=== PATIENT | male | born 1995 ===

== ENCOUNTER 2018-02-06 04:31 | Inpatient (IN) ==
--- NOTE | 2018-02-06 06:44 | ED ---
HPI General Chief complaint: Psychiatric Symptoms Stated complaint: psych screen/vcso Time Seen by Provider: 02/06/18 06:39 Source: patient and police Mode of arrival: ambulatory Limitations: no limitations History of Present Illness HPI narrative: 22-year-old male with no significant medical history presents emergency department for evaluation under Lisandro. Patient has been seen and evaluated at [facility]. He was medically cleared and transferred here. Patient has been increasingly paranoid. He is having suicidal thoughts. He feels that his family is conspiring against him. He denies any current illicit drug use. He denies any acute medical needs. Related Data Home Medications Medication Instructions Recorded Confirmed No Known Home Medications 02/06/18 02/06/18 Allergies Allergy/AdvReac Type Severity Reaction Status Date / Time No Known Allergies Allergy Verified 02/06/18 05:36 Review of Systems Except as stated in HPI: all other systems reviewed are negative PMFSH Medical History Medical History Penis symptom or sign (Acute) Social History Social History Substance History: No History of Abuse Second Hand Smoke Exposure: No Smoking Status: Never smoker How Often Do You Have a Drink Containing Alcohol: Never Recent Travel in [facility] within the Last 8 Weeks: No Recent Out of Country Travel within the Last 8 Weeks: No Immunization History Tetanus Immunization: <5 Years Hx Influenza Vaccine This Season: No Exam Narrative Exam Narrative: GENERAL: Well-nourished, well-developed male patient, in no acute distress SKIN: Focused skin assessment warm/dry. HEAD: Normocephalic. EYES: No scleral icterus. No injection or drainage. NECK: Supple, trachea midline. No JVD or lymphadenopathy. CARDIOVASCULAR: Regular rate and rhythm without murmurs, gallops, or rubs. RESPIRATORY: Breath sounds equal bilaterally. No accessory muscle use. GASTROINTESTINAL: Abdomen soft, non-tender, nondistended. MUSCULOSKELETAL: No cyanosis, or edema. BACK: Nontender without obvious deformity. No CVA tenderness. Course Initial Documented Vital Signs Temperature 98.5 F 02/06/18 04:48 Pulse Rate 59 L 02/06/18 04:48 Respiratory Rate 15 02/06/18 04:48 Blood Pressure 110/69 02/06/18 04:48 Pulse Oximetry 100 02/06/18 04:48 Last Documented Vital Signs Temperature 98.5 F 02/06/18 04:48 Pulse Rate 59 L 07/04/18 04:48 Respiratory Rate 15 02/06/18 04:48 Blood Pressure 110/69 02/06/18 04:48 Pulse Oximetry 100 02/06/18 04:48 Medical Decision Making VALENTIN Attestation VALENTIN supervised visit: No MDM Narrative Medical decision making narrative: 22-year-old male presents emergency department as a [facility] act transfer from [facility]. Patient appears well and without distress. He is verbalizing increased paranoid thoughts as well as suicidal ideations. Patient has been medically cleared and will remain medically cleared for psychiatric screening. Mental health screening discussed with the patient. Psychiatric screen ordered. Differential Diagnosis Differential Diagnosis: Mood disorder versus personality disorder versus adjustment reaction disorder Discharge Plan Discharge Disposition Patient Disposition: 30 Still Patient Discharge Condition Condition: Stable Discharge Details Discharge Problem: Suicidal ideation Physicians Team ED Provider: DAIJA DOTSON ED Midlevel Provider: Theresa Gomez Primary Care Provider: Primary Care Catarina Moss Rxs /Orders / Referrals /Forms Prescriptions: No Action No Known Home Medications RF: 0 Status ED Status: With VALENTIN
[2018-02-06] MEDS ORDERED: Aluminum/Magnesium/Simethacone Susp 30 ML UDC PO PRN (08:25)
[2018-02-06] MEDS ORDERED: Bisacodyl 10 MG Supp RECTAL PRN (08:25)
--- NOTE | 2018-02-06 11:24 | P.HPPSY ---
Provisional Diagnosis Admission Date: February 06, 2018 08:27 Puposky I.: Unspecified psychosis, r/o schizophrenia, r/o major depressive disorder, severe , with psychotic features, cannabis use disorder Puposky II.: Deferred Puposky III.: No significant medical history Puposky IV.: Recent incarceration Puposky V.: 35 Competence Certification of Person's Competence To Provide Express and Informed Consent I have personally examined Laci Lopez, a person being served at [facility] on, February 06, 2018 1059. Express and informed consent means consent voluntarily given in writing, by a competent person, after sufficient explanation and disclosure of the subject matter involved to enable the person to make a knowing and willful decision without any element of force, fraud, deceit, duress, or other form of constraint or coercion. This person is 18 years of age or older, is not now known to be incompetent to consent to treatment with a guardian advocate, and does not have a health care surrogate or proxy currently making medical treatment decisions. I have found this person to be one of the following: [] Competent to provide express and informed consent, as defined above, for voluntary admission to this facility and is competent to provide express and informed consent for treatment. He/she has the consistent capacity to make well reasoned, willful, and knowing decisions concerning his or her medical or mental health treatment. The person fully and consistently understands the purpose of the admission for examination/placement and is fully capable of personally exercising all rights [place] Incompetent to provide express and informed consent to voluntary admission, and this is incompetent to provide express and informed consent to treatment. The person must be transferred to involuntary status and a petition for a guardian advocate filed with the Circuit Court. [x] Refusing to provide express and informed consent to voluntary admission but is competent to provide express and informed consent for treatment. The person must be discharged or transferred to involuntary status. Form shall be completed within 24 hours of a person's arrival at the receiving facility and filed in the clinical record of each person: 1. Admitted on a voluntary basis 2. Permitted to provide express and informed consent to his/her own treatment 3. Allowed to transfer from involuntary to voluntary status 4. Prior to permitting a person to consent to his or her own treatment after having been previously found incompetent to consent to treatment. History of Present Illness Capacity: Has capacity History of Present Illness: The patient is a 22-year-old descendent man, domiciled with his parents , employed, with no previous psychiatric history, no prepsychotic hospitalizations, no previous suicide attempts, no significant medical history, he does report the use of cannabis, who presents emergency department for evaluation under Lisandro. Patient has been seen and evaluated at [facility]. He was medically cleared and transferred here. As per Lisandro at patient has been increasingly paranoid. He is having suicidal thoughts. He feels that his family is conspiring against him. He denies any current illicit drug use. He denies any acute medical needs. EMR was reviewed. Case discussed with ER staff. I got collateral information from patient's mother and father, . Daniel Lopez, father, explains that the patient in the last month has been very depressed, very early leaving the house, no enjoying life, he is not enjoying work and friends in the way he used to. Patient has lost weight, in the last week he has not left his room, "he is simply not himself". The mother clarifies that the patient was arrested about a month ago because he was driving without a license, and after the patient has been feeling increasingly guilty. She noticed that the patient every day has to speak about that event. He repeatedly says that he feels very guilty and he knows that "everybody, may neighbors, my family, now know that I have not a good ". The mother clarifies also that she became quite concerned when he has started to say that people are out of the house looking inside the house because they know that he has done something really wrong. Yesterday, the patient was crying profusely stating that everything was his fault for the first time he disclosed to the mother that he has been hearing voices. Finally , the mother reports that she has a brother with schizophrenia with a similar initial presentation of the patient. On the psychiatric evaluation today the patient presents calm, cooperative, but with a prominent flat affect, blocking thought and delay speech. He says that he has his father and mother brought into the house "because I have been hearing voices everyday more frequently, multiple voices, I do not really understand what they want to tell me, but they bother me". He reports that he hears the voices every day, the voices are coming from outside his head, multiple voices, the last time he heard voices was just today. The patient also reports that he has been having difficulty differentiating the reality from the dreams, and really thinks that many people around him can read his thoughts. He reports depressed mood, reports anhedonia , reports the loss of about 10 pounds, poor appetite, poor sleep at night, and he reports that he has been thinking about committing suicide, but he does have a plan. During the evaluation the patient is oriented 3, he still process is linear, logical, coherent. He reports occasional use of marijuana, denies the use of other illegal drugs, denies the use of alcohol. - Inpatient Certification I certify that the inpatient services were ordered in accordance with Medicare regulations governing the order. This includes certification that hospital inpatient services are reasonable and necessary and in the case of services not specified as inpatient-only under 42 CFR 419.22(n), that they are appropriately provided as inpatient services in accordance to with the 2-midnight benchmark under 43 CFR 412.3(e) I certify that inpatient psychiatric hospital services are medically necessary. Evaluation and treatment and/or diagnostic testing are expected to improve the patient's condition. The patient needs on a daily basis, active treatment furnished directly by or requiring the supervision of inpatient psychiatric facility personnel. Estimated Total Length of Stay (Days): 15 Plans for Post Hospital Care: Home Review of Systems Constitutional: Denies anorexia, Denies body ache(s), Denies chills, Denies daytime sleepiness, Denies excessive sweating, Denies fatigue, Denies fever(s), Denies headache(s), Denies increased appetite, Denies lack of energy, Denies malaise, Denies night sweats, Denies weakness, Denies weight gain, Denies weight loss, Denies other Cardiovascular: Denies chest pain, Denies chest pain at rest, Denies chest pain with activity, Denies excessive sweating, Denies fainting, Denies fast heart rate, Denies foot swelling, Denies generalized swelling, Denies irregular heart rhythm, Denies leg pain with activity, Denies leg sores, Denies leg swelling, Denies lightheadedness, Denies radiating jaw, neck or arm pain, Denies rapid, pounding, or irregular heartbeat, Denies shortness of breath, Denies shortness of breath with activity, Denies shortness of breath when lying down, Denies shortness of breath causing sudden awakening, Denies slow heart rate, Denies other Respiratory: Denies change in phlegm color, Denies chest congestion, Denies cough, Denies coughing up blood, Denies excessive phlegm production, Denies pain on inspiration, Denies pain with cough, Denies shortness of breath, Denies shortness of breath with activity, Denies snoring, Denies stridor, Denies wheezing, Denies other Gastrointestinal: Denies abdominal pain, Denies belching, Denies black, tarry stools, Denies bloating, Denies bright, red blood in stools, Denies change in bowel habits, Denies constant urge to pass stool, Denies change in stools, Denies coffee ground vomit, Denies constipation, Denies cramping, Denies difficulty swallowing, Denies excessive passing of gas, Denies feeling full early, Denies heartburn, Denies incontinent of stools, Denies loose stools, Denies nausea, Denies pain with swallowing, Denies vomiting, Denies vomiting blood, Denies other Genitourinary: Denies blood in semen, Denies blood in urine, Denies decreased urination, Denies difficulty urinating, Denies difficulty with ejaculations, Denies erectile dysfunction, Denies genital lesions, Denies genital pain, Denies painful urination, Denies side pain, Denies frequent nighttime urination , Denies painful ejaculations, Denies penile discharge, Denies scrotal swelling , Denies testicle lump, Denies testicle pain, Denies urinary frequency, Denies urinary hesitancy, Denies urinary incontinence, Denies urinary urgency, Denies other Musculoskeletal: Denies abnormal walking, Denies back pain, Denies body aches, Denies decreased muscle mass, Denies deformity, Denies joint pain, Denies joint swelling, Denies limited joint movement, Denies loss of height, Denies muscle cramps, Denies muscle weakness, Denies neck pain, Denies numbness, Denies radiating pain into limb, Denies stiffness, Denies tingling, Denies other Neurologic: Denies abnormal hearing, Denies abnormal movements, Denies abnormal speech, Denies abnormal walking, Denies behavioral changes, Denies burning sensations, Denies confusion, Denies dizziness, Denies fainting, Denies frequent falls, Denies headache(s), Denies lack of coordination, Denies localized weakness, Denies loss of vision, Denies memory loss, Denies numbness, Denies other visual disturbances, Denies radiating pain, Denies restless legs, Denies convulsions, Denies seizure-like activity, Denies sensory deficit, Denies tingling, Denies tingling/numbness/burning sensations, Denies tremor(s), Denies unsteadiness, Denies weakness, Denies other Psychiatric: Reports depression, Reports hopelessness, Reports paranoia, Reports sensing things others do not sense, Reports thoughts of hurting/killing yourself PMFSH - History History Provided By: Patient - Medical History Medical History: Medical History (Last Updated 02/06/18 @ 04:57 by William Batres) Penis symptom or sign - Family History Family History: Family History (Last Updated 02/06/18 @ 11:12 by Jj Barakat MD) Other Psychosis Schizophrenia - Tobacco History Second Hand Smoke Exposure: No Smoking Status: Never smoker - Alcohol History How Often Do You Have a Drink Containing Alcohol: Never - Substance Use History Substance History: Active Abuse - Substance Use Type Marijuana Route Used: By Mouth Reason for Use: Calm Down - Travel History Recent Travel in the [place] Within the Last 8 Weeks: No Recent Travel Out of the Country Within the Last 8 Weeks: No - Immunization History Tetanus Immunization: <5 Years Hx Influenza Vaccine This Season: No Medications and Allergies Active Medications: Active Medications Al Hydrox/Mg Hydrox/Simethicone (Mag-Al Plus Susp Liq) 30 ml PO Q6H PRN PRN Reason: DYSPEPSIA Al Hydroxide/Mg Hydroxide (Milk Of Magnesia Liq) 30 ml PO DAILY PRN PRN Reason: CONSTIPATION Al Hydroxide/Mg Hydroxide (Milk Of Magnesia Liq) 30 ml PO Q12H PRN PRN Reason: Mild Constipation Aripiprazole (Abilify) 5 mg PO DAILY ANSHU Bisacodyl (Dulcolax Supp) 10 mg RECTAL DAILY PRN PRN Reason: SEVERE CONSITIPATION Lactulose (Lactulose Liq) 30 ml PO DAILY PRN PRN Reason: SEVERE CONSITIPATION Senna/Docusate Sodium (Wendi-Colace) 1 tab PO BID ANSHU Sennosides (Senokot) 17.2 mg PO Q12H PRN PRN Reason: Moderate Constipation Allergies Allergy/AdvReac Type Severity Reaction Status Date / Time No Known Allergies Allergy Verified 02/06/18 05:36 Home Medications Medication Instructions Recorded Confirmed Type No Known Home Medications 02/06/18 02/06/18 History Exam Vital signs: Vital Signs 02/06/18 04:48 02/06/18 07:12 Temperature 98.5 F Pulse Rate 59 L 69 Respiratory Rate 15 19 Blood Pressure 110/69 121/67 Pulse Oximetry 100 100 Intake & Output 02/05/18 02/06/18 02/06/18 18:59 06:59 18:59 Weight 61.235 kg Narrative: The patient has some level of psychomotor agitation, but no EPS, no withdrawal symptoms, no stiffness, no gait disturbance. - Routine HEENT Exam Head: Present: normocephalic Eye: Present: EOMI ENT: Present: mucous membranes moist Mental Status Examination Appearance: Appropriate Consciousness: Alert Orientation: x4 Speech: Hesitant, Slow Language: Adequate Fund of Knowledge: Adequate Attention and Concentration: Adequate Memory: Unremarkable Mood: Appropriate Affect: Flat Thought Content: Bizarre thinking, Ideas of reference, Hallucinations Hallucination Type: Auditory Delusion Type: Paranoid Suicidal Ideation: Yes Suicidal Plan: No Suicidal Intention: No Homicidal Ideation: No Homicidal Plan: No Homicidal Intention: No Insight: Poor Judgment: Poor Assessment and Plan - Assessment (1) Unspecified psychosis Code(s): F29 - Unspecified psychosis not due to a substance or known physiological condition Status: Acute - Plan Plan: Estimated LOS: [] days On my psychiatric evaluation I find a patient that is superficially cooperative , with a prominent flat affect, internally preoccupied, speech delay and some level of blocking thought. After patient was incarcerated about a month ago for driving without a license the patient has been presenting symptomatology of depression, with sadness, poor appetite, anhedonia, no enjoying life, losing weight, sleeping poorly, and also having suicidal ideation. However, in the last weeks the patient also has been presenting was seems to be a psychotic dissociation with increased paranoia, pathologic guiltiness, ideas of reference , thought control and he also has been hearing voices. The patient has asked his parents to bring him to the hospital and his suicidal ideation has been more pervasive. This is a patient without previous psychiatric history, no prepsychotic hospitalizations, no previous suicidal attempts, he does have an maternal uncle with schizophrenia and with a similar initial presentation that the patient, as per mother report. He also reports the use of cannabis, which could be a deputy assessor of psychotic symptoms. Given the level of impairment in reality testing and also due to suicidal ideation the patient is a elevated risk of danger to self. He needs psychiatric hospitalization for stabilization. Current presentation seems to be a first episode of a major psychotic disorder, most probably schizophrenia, but also major depressive disorder with psychotic features needs to be explored. We will start the patient Abilify 5 mg at bedtime for his psychosis. Patient will be admitted in 2700 unit. Patient and family agree with this plan. I will consult psychiatry for second opinion. Psychoeducation, motivation and support provided. Justification for Continued Inpatient Stay: Patient is acutely psychotic (1) Unspecified psychosis Qualifiers: Psychosis type: brief psychotic disorder Qualified Code(s): F23 - Brief psychotic disorder
[2018-02-06 11:40] LABS: Baso % (Auto) 0.7 % (0.0-2.0); Eos % (Auto) 0.3 % (0.0-4.0); Hematocrit 44.5 % (39.0-51.0); Hemoglobin 15.7 gm/dL (13.0-17.0); Lymph # (Auto) 1.5 th/mm3 (1.0-4.8); Lymph % (Auto) 21.3 % (9.0-44.0); Mean Corpuscular HGB Conc 35.2 % (32.0-36.0); Mean Corpuscular Hemoglobin 31.6 pg (27.0-34.0); Mean Corpuscular Volume 89.7 fL (80.0-100.0); Mean Platelet Volume 9.5 fL (7.0-11.0); Mono # (Auto) 0.5 th/mm3 (0.0-0.9); Mono % (Auto) 7.3 % (0.0-8.0); Neut # (Auto) 4.9 th/mm3 (1.8-7.7); Neut % (Auto) 70.4 % (16.0-70.0); Platelet Count 135 th/mm3 (150-450); Red Blood Count 4.96 mil/mm3 (4.50-5.90); Red Cell Distribution Width 13.1 % (11.6-17.2); White Blood Count 6.9 th/mm3 (4.0-11.0)
[2018-02-06 11:54] LABS: Anion Gap 9 meq/L (5-15); Blood Urea Nitrogen 17 mg/dL (7-18); Calcium 9.8 mg/dL (8.5-10.1); Carbon Dioxide 27.8 meq/L (21.0-32.0); Chloride 104 meq/L (98-107); Glomerular Filtration Rate Greater Than 89 mL/min (>89); Glucose,Random 112 mg/dL (74-106); Sodium 141 meq/L (136-145)
[2018-02-06] MEDS: Senna/Docusate Sodium 8.6/50 MG Tablet PO SCH (20:43)
[2018-02-07 11:11] LABS: Anion Gap 9 meq/L (5-15); Blood Urea Nitrogen 17 mg/dL (7-18); Carbon Dioxide 28.7 meq/L (21.0-32.0); Chloride 105 meq/L (98-107); Glomerular Filtration Rate Greater Than 89 mL/min (>89); Glucose,Random 77 mg/dL (74-106); Potassium 4.1 meq/L (3.5-5.1); Sodium 143 meq/L (136-145)
[2018-02-07 11:12] LABS: Cholesterol 130 mg/dL (120-200); Triglycerides 94 mg/dL (42-150)
[2018-02-07 11:25] LABS: Chol/HDL Ratio 3.03 Ratio; HDL Cholesterol 42.8 mg/dL (40.0-60.0); LDL Cholesterol,Calculated 68 mg/dL (0-99)
[2018-02-07] MEDS: ARIPiprazole 5 MG Tablet PO SCH (12:01)
[2018-02-07] MEDS: Senna/Docusate Sodium 8.6/50 MG Tablet PO SCH ×2 (14:15→21:32)
--- NOTE | 2018-02-07 17:21 | P.CONPSY ---
Provisional Diagnosis Admission Date: February 06, 2018 08:27 Odonnell I.: Unspecified psychosis, r/o schizophrenia, r/o major depressive disorder, severe , with psychotic features, cannabis use disorder Odonnell II.: Deferred Odonnell III.: No significant medical history Odonnell IV.: Recent incarceration Odonnell V.: 36 History of Present Illness Consult date: 02/07/18 Requesting Physician: Jj Barakat Reason for Consult: Second opinion Primary Care Provider: No Primary Care Physician History of Present Illness: Patient is a 22-year-old man, single, domiciled with parents, employed in [employer], with no formal past psychiatric history, with a substance use history significant for marijuana use, and remote use of cocaine and benzodiazepines who was brought into the [facility] due to suicide ideations, paranoia, depressive symptoms along with perceptual disturbances which patient was admitted for stabilization. Patient was found in day room noted B, cooperative. Patient reports he had been hearing voices for the past 3 weeks in the context of recent stressors such as having lost his job, had been in halfway for a week after he violated probation from previous charge of grand theft and possession of drugs. Patient also reports having a lot of hallucinations of "whispers" which have been occurring which recently for the past week and progressing in intensity and frequency. Patient reports that the voices are not command in nature last summer that was earlier today denying any visual hallucinations. Patient states that he came to the hospital because he needs help. Patient also endorsing paranoid ideation and reports at this time denying any suicidal homicidal ideation. He did endorse having suicide ideation for the past week prior to his admission. At this time patient reports feeling "alright". PMFSH - History History Provided By: Patient - Medical History Medical History: Medical History (Last Reviewed 02/07/18 @ 05:53 by Юлия Sepulveda RN) Hallucination Male circumcision Penis symptom or sign - Family History Family History: Family History (Last Updated 02/06/18 @ 11:12 by Jj Barakat MD) Other Psychosis Schizophrenia - Tobacco History Second Hand Smoke Exposure: Yes Tobacco Use In Past 30 Days: Yes Smoking Status: Current every day smoker Tobacco Type: Cigarettes - Alcohol History How Often Do You Have a Drink Containing Alcohol: 2 to 4 times a month - Substance Use History Substance History: Active Abuse - Substance Use Type Marijuana Type: marijuana cocaine xanax Status: Early Remission Route Used: Inhalation Frequency: Daily few times a day Reason for Use: Calm Down, Feels Good Comment: Patient states that he quit smoking marijuana a month ago. - Travel History Recent Travel in the [place] Within the Last 8 Weeks: No Recent Travel Out of the Country Within the Last 8 Weeks: No - Immunization History Tetanus Immunization: Unsure Hx Influenza Vaccine This Season: No Medications and Allergies Active Medications: Active Medications Al Hydrox/Mg Hydrox/Simethicone (Mag-Al Plus Susp Liq) 30 ml PO Q6H PRN PRN Reason: DYSPEPSIA Al Hydroxide/Mg Hydroxide (Milk Of Magnesia Liq) 30 ml PO DAILY PRN PRN Reason: CONSTIPATION Al Hydroxide/Mg Hydroxide (Milk Of Magnesia Liq) 30 ml PO Q12H PRN PRN Reason: Mild Constipation Aripiprazole (Abilify) 5 mg PO DAILY [facility] Last Admin: 02/07/18 12:01 Dose: 5 mg Bisacodyl (Dulcolax Supp) 10 mg RECTAL DAILY PRN PRN Reason: SEVERE CONSITIPATION Diphenhydramine HCl (Benadryl) 50 mg PO HS PRN PRN Reason: INSOMNIA Hydroxyzine HCl (Atarax) 50 mg PO Q6H PRN PRN Reason: ANXIETY AND/OR AGITATION Lactulose (Lactulose Liq) 30 ml PO DAILY PRN PRN Reason: SEVERE CONSITIPATION Senna/Docusate Sodium (Wendi-Colace) 1 tab PO BID [facility] Last Admin: 02/07/18 14:15 Dose: Not Given Sennosides (Senokot) 17.2 mg PO Q12H PRN PRN Reason: Moderate Constipation Allergies Allergy/AdvReac Type Severity Reaction Status Date / Time No Known Allergies Allergy Verified 02/06/18 05:36 Home Medications Medication Instructions Recorded Confirmed Type No Known Home Medications 02/06/18 02/06/18 History Exam Vital signs: Vital Signs 02/07/18 06:21 Temperature 97.5 F L Respiratory Rate 17 Blood Pressure 121/68 Pulse Oximetry 99 Intake & Output 02/06/18 02/07/18 02/07/18 18:59 06:59 18:59 Weight 56.7 kg Mental Status Examination Appearance: Appropriate Consciousness: Alert Orientation: x4 Speech: Hesitant, Slow Language: Adequate Fund of Knowledge: Adequate Attention and Concentration: Adequate Memory: Unremarkable Mood: Appropriate Affect: Flat Thought Content: Bizarre thinking, Ideas of reference, Hallucinations Hallucination Type: Auditory Delusion Type: Paranoid Suicidal Ideation: Yes Suicidal Plan: No Suicidal Intention: No Homicidal Ideation: No Homicidal Plan: No Homicidal Intention: No Insight: Poor Judgment: Poor Assessment and Plan - Assessment (1) Unspecified psychosis Code(s): F29 - Unspecified psychosis not due to a substance or known physiological condition Status: Acute - Plan Plan: I have seen and examined this patient, reviewed the documentation, discussed personally with Dr. Barakat, and I agree and concur with his assessment and plan. Consult appreciated. Justification for Continued Inpatient Stay: At risk of further decompensation a lower level of care. (1) Unspecified psychosis Qualifiers: Psychosis type: brief psychotic disorder Qualified Code(s): F23 - Brief psychotic disorder
[2018-02-08] MEDS: Senna/Docusate Sodium 8.6/50 MG Tablet PO SCH ×2 (09:57→22:52)
[2018-02-08] MEDS: ARIPiprazole 5 MG Tablet PO SCH (09:57)
--- NOTE | 2018-02-08 17:09 | P.PNPSY ---
Subjective Remarks: Patient seen for follow, chart reviewed. Discussion nursing staff reported the patient has been visible on the unit compliant with medication and pleasant with staff. Patient was found sitting in chair staring outside of the window stating that he was simply admiring this milan. Patient states that he had been recently thinking about things that he has done referring to "bad things have done". Patient states that he had been thinking of this since he has been having visions of sexual acts. He continues to endorse auditory hallucinations which occur "not too often", noncommand in nature but they are several voices criticizing him. He denies any suicidal homicidal ideations. Review of Systems All other systems reviewed negative except as stated in HPI Mental Status Examination Appearance: Appropriate Consciousness: Alert Orientation: x4 Speech: Hesitant, Slow Language: Adequate Fund of Knowledge: Adequate Attention and Concentration: Adequate Memory: Unremarkable Mood: Appropriate Affect: Flat Thought Process & Associations: Other ([place]) Thought Content: Bizarre thinking, Hallucinations, Preoccupations Hallucination Type: Auditory Delusion Type: Paranoid Suicidal Ideation: No Suicidal Plan: No Suicidal Intention: No Homicidal Ideation: No Homicidal Plan: No Homicidal Intention: No Insight: Poor Judgment: Poor Assessment and Plan - Assessment (1) Unspecified psychosis Code(s): F29 - Unspecified psychosis not due to a substance or known physiological condition Status: Acute - Plan Plan: Patient continues with perseveration of believe that he had done bad things, continues with auditory hallucinations but denies any suicide ideations at this time. Patient appears to be distressed by these thoughts and hallucinations. We will continue to increase Abilify to 10 mg p.o. daily to address psychosis. Continue to monitor mood and behavior. Discharge planning in progress. Justification for Continued Inpatient Stay: At risk of further decompensation a lower level of care. (1) Unspecified psychosis Qualifiers: Psychosis type: brief psychotic disorder Qualified Code(s): F23 - Brief psychotic disorder
[2018-02-09] MEDS: Senna/Docusate Sodium 8.6/50 MG Tablet PO SCH ×2 (09:35→21:24)
[2018-02-09] MEDS: ARIPiprazole 5 MG Tablet PO SCH (09:35)
--- NOTE | 2018-02-09 16:22 | P.PNPSY ---
Subjective Remarks: Pt seen and discussed with staff. He is cooperative with medications. He remains internally preoccupied and stimulated. Negative symptoms are improving and pt has been attending therapeutic groups. No SI/HI Mental Status Examination Appearance: Appropriate Consciousness: Alert Orientation: x4 Speech: Hesitant, Slow Language: Adequate Fund of Knowledge: Adequate Attention and Concentration: Adequate Memory: Unremarkable Mood: Appropriate Affect: Flat Thought Process & Associations: Other ([place]) Thought Content: Bizarre thinking, Hallucinations, Preoccupations Hallucination Type: Auditory Delusion Type: Paranoid Suicidal Ideation: No Suicidal Plan: No Suicidal Intention: No Homicidal Ideation: No Homicidal Plan: No Homicidal Intention: No Insight: Poor Judgment: Poor Assessment and Plan - Assessment (1) Unspecified psychosis Code(s): F29 - Unspecified psychosis not due to a substance or known physiological condition Status: Acute - Plan Plan: Continue current tx plan Justification for Continued Inpatient Stay: impairments in reality testing (1) Unspecified psychosis Qualifiers: Psychosis type: brief psychotic disorder Qualified Code(s): F23 - Brief psychotic disorder
[2018-02-10] MEDS: ARIPiprazole 5 MG Tablet PO SCH (09:47)
[2018-02-10] MEDS: Senna/Docusate Sodium 8.6/50 MG Tablet PO SCH ×4 (09:48→21:35)
--- NOTE | 2018-02-10 17:19 | P.PNPSY ---
Subjective Remarks: Pt seen and discussed with staff. He has been socializing more and participating in unit activities. He visited with family today. He has been compliant with medications. He was receptive to psychoeducation about need for continued medication compliance. He continues to experience AH but they are improving. Mental Status Examination Appearance: Appropriate Consciousness: Alert Orientation: x4 Speech: Hesitant, Slow Language: Adequate Fund of Knowledge: Adequate Attention and Concentration: Adequate Memory: Unremarkable Mood: Appropriate Affect: Other (more reactive) Thought Process & Associations: Other ([place]) Thought Content: Hallucinations Hallucination Type: Auditory Delusion Type: None Suicidal Ideation: No Suicidal Plan: No Suicidal Intention: No Homicidal Ideation: No Homicidal Plan: No Homicidal Intention: No Insight: Fair Judgment: Impulsive Assessment and Plan - Assessment (1) Unspecified psychosis Code(s): F29 - Unspecified psychosis not due to a substance or known physiological condition Status: Acute - Plan Plan: Continue current tx plan Justification for Continued Inpatient Stay: risk of decompensation (1) Unspecified psychosis Qualifiers: Psychosis type: brief psychotic disorder Qualified Code(s): F23 - Brief psychotic disorder
[2018-02-11] MEDS: Senna/Docusate Sodium 8.6/50 MG Tablet PO SCH (09:20)
[2018-02-11] MEDS: ARIPiprazole 5 MG Tablet PO SCH (09:20)
--- NOTE | 2018-02-11 16:19 | P.DSPSY ---
Psychiatry Discharge Summary Inpatient Psychiatric care?: Yes Advance Directives: No Mental Health Advance Directive: No Health Care Proxy: No - Admission Admission Date: February 06, 2018 08:27 - Admission Diagnosis (1) Unspecified psychosis Code(s): F29 - Unspecified psychosis not due to a substance or known physiological condition Brief History: The patient is a 22-year-old descendent man, domiciled with his parents , employed, with no previous psychiatric history, no prepsychotic hospitalizations, no previous suicide attempts, no significant medical history, he does report the use of cannabis, who presents emergency department for evaluation under [facility]. Patient has been seen and evaluated at [facility]. He was medically cleared and transferred here. As per [facility] at patient has been increasingly paranoid. He is having suicidal thoughts. He feels that his family is conspiring against him. He denies any current illicit drug use. He denies any acute medical needs. EMR was reviewed. Case discussed with ER staff. I got collateral information from patient's mother and father, . Daniel Lopez, father, explains that the patient in the last month has been very depressed, very early leaving the house, no enjoying life, he is not enjoying work and friends in the way he used to. Patient has lost weight, in the last week he has not left his room, "he is simply not himself". The mother clarifies that the patient was arrested about a month ago because he was driving without a license, and after the patient has been feeling increasingly guilty. She noticed that the patient every day has to speak about that event. He repeatedly says that he feels very guilty and he knows that "everybody, may neighbors, my family, now know that I have not a good ". The mother clarifies also that she became quite concerned when he has started to say that people are out of the house looking inside the house because they know that he has done something really wrong. Yesterday, the patient was crying profusely stating that everything was his fault for the first time he disclosed to the mother that he has been hearing voices. Finally , the mother reports that she has a brother with schizophrenia with a similar initial presentation of the patient. On the psychiatric evaluation today the patient presents calm, cooperative, but with a prominent flat affect, blocking thought and delay speech. He says that he has his father and mother brought into the house "because I have been hearing voices everyday more frequently, multiple voices, I do not really understand what they want to tell me, but they bother me". He reports that he hears the voices every day, the voices are coming from outside his head, multiple voices, the last time he heard voices was just today. The patient also reports that he has been having difficulty differentiating the reality from the dreams, and really thinks that many people around him can read his thoughts. He reports depressed mood, reports anhedonia , reports the loss of about 10 pounds, poor appetite, poor sleep at night, and he reports that he has been thinking about committing suicide, but he does have a plan. During the evaluation the patient is oriented 3, he still process is linear, logical, coherent. He reports occasional use of marijuana, denies the use of other illegal drugs, denies the use of alcohol. Tobacco Use In Past 30 Days: Yes How Often Do You Have a Drink Containing Alcohol: 2 to 4 times a month Hospital Course: The patient is a 22-year-old descendent man, domiciled with his parents , employed, with no previous psychiatric history, no previous psychotic hospitalizations, no previous suicide attempts, no significant medical history, he does report the use of cannabis, who presents emergency department for evaluation under [facility] which patient was admitted to the inpatient psychiatry unit for further evaluation and management. Patient was started on aripiprazole and titrated to 10mg daily, which he tolerated medications well with no adverse drug reactions, noted to have been internally preocuppied initially but improved throughout admission, with stable mood and was able to engage in treatment and participate in groups and activities. Patient continued to deny any suicidal or homicidal ideation with cessation of perceptual disturbances. He responded well to treatment, was noted to be cooperative with staff, had good behavioral control with no evidence of any verbal or physical aggressive behavior toward others and was noted to have stable mood with treatment. Upon discharge patient reported feeling good denied any perceptual disturbances nor suicidal ideations or homicidal ideations. Patient agreed to continue treatment and follow up appointments for continuity of care. Patient will be discharged back to parents home with plan to continue recommendations on an outpatient setting. Counseling on abstinence from substance use was reviewed. Treatment plan was explained to patient which he acknowledged. Supportive psychotherapy provided. Suicide and violence risk assessment on day of discharge both suggest lower imminent risk, and the patient's level of function is adequate for planned level of outpatient care. Patient has maximized benefit from this inpatient psychiatric hospital stay and to return to psychiatric emergency room for any concerning psychiatric symptoms. Patient agrees with plan. - Discharge Discharge Date: 02/11/18 Discharge Disposition: Home - Discharge Instructions Discharge Diet: Regular Diet Activities You Can Perform: Regular- No Restrictions - Discharge Time > 30 minutes Mental Status Examination Appearance: Appropriate Consciousness: Alert Orientation: x4 Motor Activity: Normal gait Speech: Unremarkable Language: Adequate Fund of Knowledge: Adequate Attention and Concentration: Adequate Memory: Unremarkable Mood: Appropriate Affect: Appropriate Thought Process & Associations: Intact Thought Content: Appropriate Hallucination Type: None Delusion Type: None Suicidal Ideation: No Suicidal Plan: No Suicidal Intention: No Homicidal Ideation: No Homicidal Plan: No Homicidal Intention: No Insight: Fair Judgment: Impulsive Discharge/Advance Care Plan - Results Vital Signs: Last Vital Signs Temp 97.6 F 02/11/18 05:59 Pulse 78 02/11/18 05:59 Resp 16 02/11/18 05:59 BP 111/65 02/11/18 05:59 Pulse Ox 99 02/11/18 05:59 Lab Results: Laboratory Results Hemoglobin A1c 5.0 % (4.3-6.0) 02/07/18 09:25 Triglycerides 94 mg/dL (42-150) 02/07/18 09:25 Cholesterol 130 mg/dL (120-200) 02/07/18 09:25 LDL Cholesterol, Calc 68 mg/dL (0-99) 02/07/18 09:25 HDL Cholesterol 42.8 mg/dL (40.0-60.0) 02/07/18 09:25 TSH Cancelled 02/06/18 11:25 Summary of Procedures: none Pending Results: None - Medications Number of antipsychotic medications at discharge: 1 - Discharge Care Plan Goals to Promote Your Health: * To prevent worsening of your condition and complications * To maintain your health at the optimal level Directions to Meet Your Goals: Take your medications as prescribed Follow your dietary instruction Follow activity as directed Keep your appointments as scheduled Take your immunizations and boosters as scheduled If your symptoms worsen call your PCP, if no PCP go to Urgent Care Center or Emergency Room For 26/02 questions related to your inpatient stay or results of tests pending at discharge, please contact Dr. Yves Blackwell MD at Smoking is Dangerous to Your Health. Avoid second hand smoking (1) Unspecified psychosis Qualifiers: Psychosis type: brief psychotic disorder Qualified Code(s): F23 - Brief psychotic disorder
== END 2018-02-11 16:25 | disposition home or self-care (01) ==
LOC: NEPD 04:31 → NEDA 08:27 → H270 10:35 → NEDA 10:41 → H260 02-07 11:45
PROVIDERS: ADMIT Student in an Organized Health Care Education/Training Program; ATTEND Student in an Organized Health Care Education/Training Program